=== PATIENT | male | born 2000 | race Caucasian/White ===

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

== ENCOUNTER 2022-09-23 10:15 | Emergency (ER) | payer OTHER, SELFPAY ==
[2022-09-23 10:15] VITALS: BP 131/76; PULSE 96; RESP 16; TEMP 36.8; O2SAT 96; BMI 25.2
--- NOTE | 2022-09-23 11:50 | ED.VIS.BACK ---
HPI History of Present Illness Chief Complaint: Back Informant: patient and parent Narrative Narrative: Patient complains of pain in the right lower back. He really points to the SI joint as his area. Is worse if he moves or twists. At first he states he just started somewhere around Sunday. He saw his physician on what sounds like Sunday or and was given a steroid shot. He states this made it worse. He does not have any numbness tingling weakness bowel or bladder dysfunction. No tearing or ripping. I then find out the more I talk to them that he has back pain going back many years. His mom states that he has had back pain since he was 9 years old. He has seen many specialist. He has had x-rays. He has had medicines nothing really gets it better. He works as an [employer] so he does a lot of lifting but denies any specific injury. He has not had any recent infections or fevers. This pain is typical of his pain but he states he can hurt anywhere up and down the back. It is different all the time. He has had pain in this lower area quite frequently though. He then states over the last few months he has been having more episodes of pain. He does not take any routine medications for this. He was given what sounds like a Kenalog shot but no prescriptions to go. He has never had surgery. He does report that he had a fracture of his spine. When I ask about this he states he had x-rays for a broken rib and it showed what was suspicious for a prior fracture of I believe his thoracic spine. He denies any specific injury recently. Motion and bending make it worse and rest makes it better. [facility] Medical History Back pain Viral URI Home Medications cyclobenzaprine 10 mg tablet 10 mg PO BID PRN muscle spasm #10 tabs 09/23/22 [Rx Last Taken Unknown] naproxen 500 mg tablet 500 mg PO BID #20 tabs 09/23/22 [Rx Last Taken Unknown] Allergy/AdvReac Type Severity Reaction Status Date / Time No Known Allergies Allergy Verified 09/23/22 10:19 Family History Grandmother COPD (chronic obstructive pulmonary disease) CHF (congestive heart failure) Hypertension Grandfather CHF (congestive heart failure) Kidney disease Diabetes Hypertension Pacemaker Sleep apnea Surgical History History of tonsillectomy and adenoidectomy Social History Smoking Status: Never smoker alcohol intake: never ROS ROS ED Constitutional Constitutional ED: Denies chills or fever(s) Eyes Eyes: Denies change in vision ENT ENT ED: Denies rhinorrhea or sore throat Cardiovascular Cardiovascular: Denies chest pain, palpitations or racing heartbeat Respiratory/Chest Respiratory/Chest: Denies dyspnea Gastrointestinal Gastrointestinal: Denies abdominal pain, nausea or vomiting Genitourinary Genitourinary ED: Denies dysuria, hematuria or urinary frequency Musculoskeletal Musculoskeletal: Reports back pain Integumentary Denies rash Neurologic Neurologic: Denies paresthesias or weakness Endocrine Endocrinology: Denies polydipsia or polyuria Hematologic/Lymphatic Hematologic/Lymphatic: Denies easy bleeding or easy bruising Allergic/Immunologic Allergic/Immunologic ED: Denies urticaria EXAM Physical Exam Const Vital Signs: 09/23/22 10:15 Temperature 98.2 F Temperature Source Temporal Pulse Rate 96 Respiratory Rate 16 Blood Pressure 131/76 H Blood Pressure Mean 94 Pulse Ox 96 Oxygen Delivery Method Room Air Positive well nourished HEENT Reports moist mucous membranes HEENT Narrative: Do not see a notably abnormal palate. Eyes PERRL and EOMs intact bilaterally Neck supple Resp normal respiratory effort and clear to auscultation bilaterally Effort and Inspection: Negative for pain with movement Cardio regular rate and regular rhythm GI normal to inspection, nondistended, normoactive bowel sounds and soft to palpation Palpation: Negative for tender Back/Spine normal to inspection Back/Spine Narrative: No rash or lesions or bruising. He has tenderness down very low in the right paraspinal area in the right SI joint. No real buttock or sciatic notch tenderness though. Extremity normal to inspection Extremity Narrative: No swelling tenderness distended veins or abnormal pulses. Neuro Neuro Narrative: Patient is alert and appropriate. He has 2+ bilateral patellar reflexes. He has 1+ bilateral Achilles reflex. He has normal strength. He can stand on heels toes and walk. He is a little stiff getting out of bed but he can walk normally. Sensorium / Orientation: alert Psych mental status grossly normal Skin no rashes or lesions noted MDM MDM MDM Narrative Medical decision making narrative: X-rays show what appear to be some chronic spondylolysis and spondylolisthesis. Patient has no neurologic symptoms. Plan will be nonsteroidals and muscle relaxants and ice. I stated that the steroids he was given still may provide some benefit. They may consider physical therapy as an outpatient. He will follow-up with his primary physician. If he develops numbness tingling weakness increasing pain fevers chills or other concerns he should return. Radiography Diagnostic Testing: Clinical Impression(s) from Imaging Studies Lumbar Spine X-Ray 09/23/22 11:54 IMPRESSION: Bilateral spondylolysis at L5 with grade 1 anterolisthesis of L5 over S1. Electronically Signed: Hal Barbour MD at 12:22 EST , Lumbar spine x-ray shows some spondylolysis and an anterior spondylolisthesis. When I look at prior films, i do see this from images from 04/22/2020. Discharge Plan Triage Chief Complaint: Back ED Provider: Joe Quiroga Dx/Rx/DC Orders Clinical Impression: Back pain Instructions: ED Back Pain (Acute or Chronic) Prescriptions: New cyclobenzaprine 10 mg tablet 10 mg PO BID PRN (Reason: muscle spasm) Qty: 10 0RF naproxen 500 mg tablet 500 mg PO BID Qty: 20 0RF Primary Care Provider: Benny Flynn Referrals: Benny Flynn MD [Primary Care Provider] - Disposition Disposition: Home, Self Care
--- NOTE | 2022-09-23 11:54 | RAD_ITS ---
INDICATION: Back pain EXAMINATION/TECHNIQUE: X-RAY - XR Spine Lumbar 2 or 3 Views COMPARISON: None. FINDINGS: VERTEBRAE: Preserved vertebral body height. No fracture. Bilateral spondylolysis at L5. Grade 1 anterolisthesis of L5 over S1. Preservation of the normal lumbar lordosis. No significant facet arthropathy. Minimal levoscoliosis. DISCS: Disc spaces are maintained. INCLUDED ABDOMEN: Included bowel gas pattern is non-obstructive. RAD/Lumbar Spine 2 or 3 Views IMPRESSION: Bilateral spondylolysis at L5 with grade 1 anterolisthesis of L5 over S1. Electronically Signed: Hal Barbour MD at 12:22 EST ,
[2022-09-23 13:22] VITALS: BP 108/79; PULSE 64; RESP 15; O2SAT 99
== END 2022-09-23 13:22 | disposition home or self-care (01) ==
PROVIDERS: Emergency Provider Emergency Medicine; PCP Family Medicine; Visit Provider Emergency Medicine
DX: M54.50 Low back pain, unspecified (principal)
CPT/HCPCS: 72100; 99282

== ENCOUNTER 2023-07-18 06:48 | Emergency (ER) | payer OTHER, SELFPAY ==
[2023-07-18 06:49] VITALS: PULSE 82; RESP 18; TEMP 36.4; O2SAT 99; BMI 28.8
[2023-07-18 06:51] VITALS: BP 144/87
--- NOTE | 2023-07-18 07:37 | ED.VIS.BACK ---
HPI History of Present Illness Chief Complaint: Back Narrative Narrative: Male with history of back pain presenting for lower back pain. Patient states he was walking his feet yesterday and bent over and felt a pop. He states his back has been hurting overnight. He has not tried any Tylenol or ibuprofen because he states it does not help him. He laid with a pillow under his back which usually works for him. He has tried ice but no heat. Denies loss of bladder or bowel control. Denies saddle anesthesia. Denies direct trauma. [facility] Medical History Back pain Viral URI Home Medications NK 12/08/22 [History Last Taken Unknown] lidocaine 5 % topical patch (Lidoderm) 1 patch topical DAILY #15 ea 07/18/23 [Rx Last Taken Unknown] naproxen 500 mg tablet (Naprosyn) 500 mg PO BID PRN pain #20 tabs 07/18/23 [Rx Last Taken Unknown] tizanidine 4 mg capsule (Zanaflex) 4 mg PO Q8H PRN muscle spasticity #20 caps 07/18/23 [Rx Last Taken Unknown] Allergy/AdvReac Type Severity Reaction Status Date / Time No Known Allergies Allergy Verified 07/18/23 06:52 Family History Grandmother COPD (chronic obstructive pulmonary disease) CHF (congestive heart failure) Hypertension Grandfather CHF (congestive heart failure) Kidney disease Diabetes Hypertension Pacemaker Sleep apnea Surgical History History of tonsillectomy and adenoidectomy Social History Smoking Status: Never smoker alcohol intake: never ROS ROS ED Constitutional Constitutional ED: Denies chills, fever(s) or sweats Eyes Eyes: Denies blurry vision or change in vision ENT ENT ED: Denies ear pain or sore throat Cardiovascular Cardiovascular: Denies chest pain, palpitations or racing heartbeat Respiratory/Chest Respiratory/Chest: Denies cough, dyspnea or sputum Gastrointestinal Gastrointestinal: Denies abdominal pain, constipation, diarrhea, nausea or vomiting Genitourinary Genitourinary ED: Denies dysuria, hematuria or urinary frequency Musculoskeletal Musculoskeletal: Reports back pain; Denies arthralgias, myalgias or neck pain Integumentary Denies abscess, Abrasions or rash Neurologic Neurologic: Denies headache(s), paresthesias or weakness Psychiatric Psychiatric: Denies anxiety, depression, suicidal ideation or suicidal thoughts Endocrine Endocrinology: Denies polydipsia or polyuria EXAM Physical Exam Const Vital Signs: 07/18/23 06:49 07/18/23 06:51 Temperature 97.5 F L Temperature Source Temporal Pulse Rate 82 Respiratory Rate 18 Blood Pressure 144/87 H Blood Pressure Mean 106 Pulse Ox 99 Oxygen Delivery Method Room Air Positive well nourished General Appearance ED: NAD HEENT Reports moist mucous membranes Eyes PERRL and EOMs intact bilaterally Resp normal respiratory effort Cardio regular rate and regular rhythm Back/Spine Back/Spine Narrative: Right lumbar paraspinal muscular tenderness adjacent to L4-L5. No midline spinal deformity, step-off, tenderness. Extremity normal to inspection Neuro oriented x3 Sensorium / Orientation: alert Motor Exam: strength 5/5 throughout Psych mental status grossly normal Skin no rashes or lesions noted MDM MDM MDM Narrative Medical decision making narrative: Lumbar strain. Patient has not tried any anti-inflammatories or Tylenol. He is given Naprosyn and Norflex here. He did not want any IM shots. I do not believe he needs any imaging. I discussed at length with him care for lower back pain. He is given a prescription for muscle relaxers and Naprosyn. It was recommended that he follow-up with his PCP to ensure resolution. Return precautions discussed. Impression: 1. Lumbar strain Discharge Plan Triage Chief Complaint: Back ED Provider: Breezy Michelle Dx/Rx/DC Orders Instructions: ED Back Sprain/Strain Prescriptions: New naproxen [Naprosyn] 500 mg tablet 500 mg PO BID PRN (Reason: pain) Qty: 20 0RF tizanidine [Zanaflex] 4 mg capsule 4 mg PO Q8H PRN (Reason: muscle spasticity) Qty: 20 0RF lidocaine [Lidoderm] 5 % adhesive patch,medicated 1 patch topical DAILY Qty: 15 0RF Rx Instructions: leave on most painful area for up to 12 hrs No Action NK Primary Care Provider: Benny Flynn Referrals: Benny Flynn MD [Primary Care Provider] - Disposition Disposition: Home, Self Care
[2023-07-18] MEDS: Naproxen 500 MG Tablet PO (07:44)
[2023-07-18] MEDS: Orphenadrine 100 MG Tablet PO (07:44)
== END 2023-07-18 08:11 | disposition home or self-care (01) ==
LOC: ED 07:40
PROVIDERS: Emergency Provider Student in an Organized Health Care Education/Training Program; PCP Family Medicine; Visit Provider Student in an Organized Health Care Education/Training Program
DX: S39.012A Strain of muscle, fascia and tendon of lower back, initial encounter (principal); X58.XXXA Exposure to other specified factors, initial encounter
CPT/HCPCS: 99283

== ENCOUNTER → 2024-02-07 | Outpatient (CLI) | payer OTHER, SELFPAY ==
--- NOTE | 2024-02-07 17:30 | RAD_ITS ---
STUDY: X-RAY - LUMBAR SPINE REASON FOR EXAM: Male, 23 years old. BACKACHE TECHNIQUE: 5 view(s) of the lumbar spine were obtained. COMPARISON: 09/23/2022 FINDINGS: Normal lumbar lordosis. There is no substantial scoliosis. Bilateral pars defects the L5 vertebra consistent with L5 spondylolysis. 5 mm of anterolisthesis of L5 on S1 consistent with grade 1 spondylolisthesis. Normal vertebral bodies and endplates. Normal disc space heights. Multilevel facet hypertrophy in the lower lumbar spine. The soft tissue structures are unremarkable. RAD/L/S Spine Min 4 Views IMPRESSION: 1. L5 spondylolysis with grade 1 spondylolisthesis of L5 on S1. 2. Degenerative disc disease lower lumbar spine. MRI may be useful. Electronically Signed: Man Nino MD at 21:53 EDT ,
== END | disposition home or self-care (01) ==
PROVIDERS: PCP Family Medicine; Referring Provider Family Medicine; Visit Provider Family Medicine
DX: M54.9 Dorsalgia, unspecified (principal)
CPT/HCPCS: 72110

== ENCOUNTER → 2024-02-08 | Outpatient (CLI) | payer OTHER, SELFPAY ==
--- NOTE | 2024-02-08 15:10 | RAD_ITS ---
EXAM: XR LUMBOSACRAL SPINE FLEXION/EXTENSION ONLY, 2 OR 3 VIEWS CLINICAL INDICATION: back pain -- FLEXION AND EXTENSION TECHNIQUE: Lateral flexion/extension views of the lumbar spine and sacrum. COMPARISON: No relevant prior studies available. FINDINGS: VERTEBRAE: Bilateral L5 spondylolysis noted with grade 2 spondylolisthesis. The anterior listhesis measures 13 mm on flexion and 9 mm on extension indicating an element of laxity at the L5-S1 level. Normal vertebral body height. SPACES: No acute findings. Disc spaces are maintained. RAD/L/S Spine Bending Flex/Ext IMPRESSION: Grade 2 listhesis of L5-S1 associated with spondylolysis. Laxity changes with flexion and extension. Electronically Signed: Ryan Clemons MD at 16:07 EDT ,
== END | disposition home or self-care (01) ==
PROVIDERS: PCP Family Medicine; Referring Provider Family Medicine; Visit Provider Family Medicine
DX: M43.10 Spondylolisthesis, site unspecified (principal)
CPT/HCPCS: 72120

== ENCOUNTER 2024-03-05 18:30 | Emergency (ER) | payer OTHER, SELFPAY ==
[2024-03-05 18:31] VITALS: BP 162/125; PULSE 99; RESP 18; TEMP 36.1; O2SAT 97
[2024-03-05 18:40] VITALS: BMI 28.5
--- NOTE | 2024-03-05 19:25 | EX.ED.DYSGE1 ---
HPI History of Present Illness Chief Complaint: Wound Informant: patient Onset/Context/Timing Onset: - (2+ years) Context: Gradual Onset Timing: Continuous Current Severity: Mild Maximum Severity: Mild Narrative Narrative: 23-year-old male no seen past medical history. Today was in [place] [facility] in the physical evaluation. He asked about the soft tissue density on his chest. They told him it could possibly be lymphoma and he came in the emergency department have it evaluated. He denies any recent illness. He has had about 20 pound weight loss in the last 2 months but he said he has been watching what he is eating and trying to lose some weight. He denies any lymphadenopathy. Or other symptoms. Prior similar symptoms: Yes Recent Illness/Hospitalization: No PFSH PFSH Medical History Viral URI Back pain Home Medications ?Medication ?Instructions ?Recorded ?Last Taken ?Type cephalexin 500 mg capsule 500 mg PO Q8H 7 days #21 caps 03/05/24 Unknown Rx Allergy/AdvReac Type Severity Reaction Status Date / Time No Known Allergies Allergy Verified 03/05/24 18:33 Family History Grandmother COPD (chronic obstructive pulmonary disease) CHF (congestive heart failure) Hypertension Grandfather CHF (congestive heart failure) Kidney disease Diabetes Hypertension Pacemaker Sleep apnea Surgical History History of tonsillectomy and adenoidectomy Social History household members: other details: Girlfriend Smoking Status: Current some day smoker tobacco type: e-cigarettes alcohol intake: never substance use type: marijuana ROS ROS ED ROS Narrative Denies recent illness. Review of Systems ROS Unobtainable: Denies due to encephalopathy Constitutional Constitutional ED: Denies chills Eyes Eyes: Denies blurry vision ENT ENT ED: Denies ear pain Cardiovascular Cardiovascular: Denies chest pain Respiratory/Chest Respiratory/Chest: Denies cough Gastrointestinal Gastrointestinal: Denies abdominal pain Genitourinary Genitourinary ED: Denies dysuria Musculoskeletal Musculoskeletal: Denies arthralgias Integumentary Denies abscess, Abrasions or rash Neurologic Neurologic: Denies headache(s) Psychiatric Psychiatric: Denies anxiety or depression Endocrine Endocrinology: Denies cold intolerance Hematologic/Lymphatic Hematologic/Lymphatic: Reports none Allergic/Immunologic Allergic/Immunologic ED: Denies mouth swelling, tongue swelling or urticaria EXAM Physical Exam Narrative Exam Narrative: 5-year-old male vital signs stable afebrile. Initial blood pressure is elevated 160/125 to be rechecked. H EENT exam unremarkable. Neck nontender no lymphadenopathy. Lungs clear to auscultation bilateral. Heart regular rhythm no murmur. Abdomen soft nontender. Over sternum there is a soft tissue density below the skin. This could be soft tissue infection. More than likely is a lipoma. It is only minimally tender. There is no fluctuance. There is a small pimple on his chest wall. There is nothing to drain. He has no axillary, cervical or inguinal lymphadenopathy. Back nontender. Lungs clear to auscultation bilaterally. Heart regular rhythm. No murmur. Moving all 4 extremities. Nontender no edema. Const Vital Signs: 03/05/24 18:31 Temperature 97 F L Temperature Source Temporal Pulse Rate 99 Respiratory Rate 18 Blood Pressure 162/125 H Blood Pressure Mean 137 Pulse Ox 97 Oxygen Delivery Method Room Air Positive well nourished and well developed; Negative for obese, cachectic, contractures or unkempt General Appearance ED: well developed and NAD; Negative for unkempt, cachectic, contractures, cyanotic, diaphoretic or pallor Nutritional Appearance: Negative for cachectic or obese HEENT Reports moist mucous membranes; Denies dry mucous membranes Negative for trauma or tenderness Mouth ED: No dry mucous membranes Mouth: No dry mucous membranes Eyes PERRL and EOMs intact bilaterally General Eye ED: Negative for pale conjunctiva Neck no lymphadenopathy, supple and no JVD General: Negative for tenderness Lymph Lymphatic: Negative for other Chest Wall inspection of chest normal; Negative for palpation of chest normal Chest Narrative: Small subcu density midsternal region. Most likely a lipoma. No fluctuance. Small pimple lateral to it. Resp normal respiratory effort and clear to auscultation bilaterally Effort and Inspection: Negative for retractions Auscultation: Negative for rales, rhonchi, wheezes or diminished lung sounds Cardio regular rate, regular rhythm, S1 normal heart sound, S2 normal heart sound and no murmurs Palpation: Negative for palpable S3 or palpable S4 Rate: Negative for bradycardia or tachycardic Rhythm: Negative for abnormal rhythm GI normal to inspection, nondistended, normoactive bowel sounds, non-tender, non-distended and no masses Inspection: Negative for abdominal distention Auscultation: normoactive bowel sounds Palpation: soft; Negative for tender or guarding Back/Spine no CVA tenderness Extremity normal to inspection General Extremety ED: Negative for edema, tenderness or other findings General Extremity: Negative for edema or other findings Neuro oriented x3 and CN's II-XII intact bilaterally Sensorium / Orientation: alert; Negative for orientation impaired, lethargic or stuporous Motor Exam: strength 5/5 throughout Psych mental status grossly normal Appearance: Negative for unkempt Attitude: No agitated Mood & Affect: Negative for depressed, anxious or tearful Skin no rashes or lesions noted, no wounds and skin turgor normal General Skin Exam: elasticity normal; Negative for jaundice or pallor Lesions: No lesion noted Rashes: No rashes noted Trauma: Negative for abrasion Wounds: Negative for wounds noted MDM MDM MDM Narrative Medical decision making narrative: 23-year-old male subcu soft tissue density along the sternum of his chest. Approximately 1 inch in length. Abscess. There is no cellulitis. More likely a lipoma. We placed on Keflex in case it is a soft tissue infection because there is a small pimple in the area. There is nothing to drain at this time there is no fluctuance. Follow-up with his doctor if not improving in a week to have further evaluation and possibly even a biopsy if needed. Discharge Plan Triage Chief Complaint: Wound ED Provider: Gabriel Owen Dx/Rx/DC Orders Clinical Impression: Lipoma Instructions: ED Lipoma Prescriptions: New cephalexin 500 mg capsule 500 mg PO Q8H 7 Days Qty: 21 0RF Primary Care Provider: Crow Flynn Referrals: Crow Flynn MD [Primary Care Provider] - 1 Week if not improving Activity Restrictions/Additional Instructions: Most likely a soft tissue benign tumor called a lipoma. Extremely unlikely that this would be lymphoma. It could be a soft tissue infection without small pimple beside it. Will put her on antibiotic Keflex 3 times a day for a week. If this does not get better follow-up with Dr. Song Garcia he can have you see a relay telegrapher in case he would need a biopsy. Print Language: Croatian Disposition Disposition: Home, Self Care
== END 2024-03-05 19:37 | disposition home or self-care (01) ==
PROVIDERS: Emergency Provider Emergency Medicine; PCP Family Medicine; Visit Provider Emergency Medicine
DX: D17.1 Benign lipomatous neoplasm of skin and subcutaneous tissue of trunk (principal); R23.8 Other skin changes; F17.290 Nicotine dependence, other tobacco product, uncomplicated
CPT/HCPCS: 99282

== ENCOUNTER → 2024-03-07 | Outpatient (CLI) | payer OTHER, SELFPAY ==
--- NOTE | 2024-03-07 14:06 | MRI_ITS ---
STUDY: MRI LUMBAR SPINE WITHOUT CONTRAST REASON FOR EXAM: Male, 23 years old. pain low back pain, sharp at times, throbbing, multiple therapy x4yrs TECHNIQUE: Standardized fat and water weighted pulse sequences were obtained in the sagittal and axial planes. COMPARISON: X-ray the lumbar spine dated February 08, 2024 FINDINGS: Normal lumbar lordosis. There is no substantial scoliosis. Normal conus medullaris that terminates at the T12 level. No marrow edema or fracture or compression deformity is present. Bilateral chronic L5 pars interarticularis defects are present. T12-L1: Normal endplates. Normal disc height, hydration and morphology. Normal bilateral facet joints. Normal central canal and bilateral lateral recesses. Normal bilateral intervertebral neural foramina. L1-2: Normal endplates. Normal disc height, hydration and morphology. Normal bilateral facet joints. Normal central canal and bilateral lateral recesses. Normal bilateral intervertebral neural foramina. L2-3: Normal endplates. Normal disc height, hydration and morphology. Normal bilateral facet joints. Normal central canal and bilateral lateral recesses. Normal bilateral intervertebral neural foramina. L3-4: Normal endplates. Normal disc height, hydration and morphology. Normal bilateral facet joints. Normal central canal and bilateral lateral recesses. Normal bilateral intervertebral neural foramina. L4-5: Normal endplates. Mild posterior disc space narrowing with slight annular bulging. Normal bilateral facet joints. Normal central canal and bilateral lateral recesses. Normal bilateral intervertebral neural foramina. 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 Normal left neural foramen. Severe right foraminal stenosis with nerve root compression. Mild disc desiccation and mild disc space narrowing. Uncovering of the posterior aspect of the disc. Mild to moderate facet joint hypertrophy. Normal central canal and bilateral lateral recesses. Normal visualized sacral ala. Normal visualized paraspinous soft tissue structures. MRI/Spine Lumbar (Routine) IMPRESSION: 1. 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 Severe right foraminal stenosis with nerve root compression Electronically Signed: Srinivasan Chung MD at 16:00 EDT Reading Location ID and State: [address] [place] [address] , Service support ,
== END | disposition home or self-care (01) ==
LOC: MRI 14:00
PROVIDERS: PCP Family Medicine; Referring Provider Orthopaedic Surgery Orthopaedic Surgery of the Spine; Visit Provider Orthopaedic Surgery Orthopaedic Surgery of the Spine
DX: M43.16 Spondylolisthesis, lumbar region (principal)
CPT/HCPCS: 72148

== ENCOUNTER 2024-09-23 15:56 | Emergency (ER) | payer OTHER, SELFPAY ==
[2024-09-23 15:58] VITALS: BP 149/94; PULSE 92; RESP 18; TEMP 36.3; O2SAT 100; BMI 26.2
--- NOTE | 2024-09-23 16:13 | EDS_ITS ---
HPI History of Present Illness Chief Complaint: Hypertension Detail of Chief Complaint: Hypertension and nosebleeds Informant: patient Narrative Narrative: Patient presents to the emergency department with concern for nosebleeds that started about a week ago. Patient states that he has had daily nosebleeds from the left side of his nose. About 5 days ago he started getting sick with some sinus congestion and headache and mild cough. He does not take any decongestions. 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 Today he had a nosebleed that lasted about a half an hour and had some he checked his blood pressure and it was 158 over 90s. Patient states that in the past the spot checked his blood pressure and typically runs in the 140 systolic. Today when he had his nosebleed and his blood pressure was checked he felt lightheaded and dizzy. He was worried about significant blood loss. PFSH PFS Medical History Viral URI Back pain Allergy/AdvReac Type Severity Reaction Status Date / Time No Known Allergies Allergy Verified 09/23/24 15:58 Family History Grandmother COPD (chronic obstructive pulmonary disease) CHF (congestive heart failure) Hypertension Grandfather CHF (congestive heart failure) Kidney disease Diabetes Hypertension Pacemaker Sleep apnea Surgical History History of tonsillectomy and adenoidectomy Social History household members: other details: Girlfriend Smoking Status: Current some day smoker tobacco type: e-cigarettes alcohol intake: never substance use type: marijuana ROS ROS ED Review of Systems ROS Unobtainable: other Constitutional Constitutional ED: Reports lethargy; Denies chills, fever(s), sweats or weight loss Eyes Eyes: Denies blurry vision, change in vision or diplopia ENT ENT ED: Reports other Details: Nosebleeds ; Denies rhinorrhea or sore throat Cardiovascular Cardiovascular: Denies chest pain, orthopnea or racing heartbeat Respiratory/Chest Respiratory/Chest: Denies cough, dyspnea, dyspnea on exertion, orthopnea or sputum Gastrointestinal Gastrointestinal: Denies abdominal pain, diarrhea, nausea or vomiting Genitourinary Genitourinary ED: Denies dysuria, hematuria or urinary frequency Musculoskeletal Musculoskeletal: Denies arthralgias, back pain, myalgias or neck pain Integumentary Denies abscess, Abrasions or rash Neurologic Neurologic: Denies headache(s) or weakness Psychiatric Psychiatric: Denies anxiety, depression or suicidal thoughts Endocrine Endocrinology: Denies polydipsia, polyphagia or polyuria Hematologic/Lymphatic Hematologic/Lymphatic: Denies easy bleeding, easy bruising or lymphadenopathy Allergic/Immunologic Allergic/Immunologic ED: Denies mouth swelling, tongue swelling or urticaria EXAM Physical Exam Const Vital Signs: 09/23/24 15:58 09/23/24 16:25 09/23/24 16:25 Temperature 97.3 F L Temperature Source Temporal Pulse Rate 92 74 Respiratory Rate 18 18 Respiratory Effort Normal Respiratory Pattern Normal Blood Pressure 149/94 H 153/78 H Blood Pressure Mean 112 103 Pulse Ox 100 99 Oxygen Delivery Method Room Air Room Air Positive well nourished and well developed General Appearance ED: well developed and NAD HEENT Reports TM's clear and moist mucous membranes HEENT Narrative: Left nasal vault-patient does have some excoriated vessels on the anterior septum that I suspect likely the source of the bleeding. No active bleeding currently. Patient also with some superficial vessels noted on the right anterior septum without evidence of hemorrhage. normocephalic and atraumatic; Negative for trauma or tenderness Tympanic Membrane ED: Yes TM's clear Eyes PERRL and EOMs intact bilaterally General Eye ED: Negative for pale conjunctiva or scleral icterus Neck no lymphadenopathy, supple and no JVD General: Negative for tenderness Chest Wall inspection of chest normal and palpation of chest normal Chest: Negative for tenderness Resp normal respiratory effort and clear to auscultation bilaterally Effort and Inspection: Negative for respiratory distress or pain with movement Auscultation: Negative for rhonchi, wheezes or diminished lung sounds Cardio regular rate, regular rhythm, S1 normal heart sound, S2 normal heart sound and no murmurs Peripheral Pulses: pulses 2+ throughout GI normal to inspection, nondistended, normoactive bowel sounds, soft to palpation, non-tender, non-distended and no masses Back/Spine no CVA tenderness and no thoracic nor lumbar tenderness Extremity normal to inspection General Extremety ED: Negative for edema General Extremity: Negative for edema Neuro oriented x3, CN's II-XII intact bilaterally, no sensory deficits noted and gait normal Sensorium / Orientation: awake, alert, oriented to person, oriented to place and oriented to time Motor Exam: strength 5/5 throughout and strength abnormal Psych mental status grossly normal Skin no rashes or lesions noted and no wounds MDM MDM MDM Narrative Medical decision making narrative: Patient with nosebleeds and concern for hypertension. Clinically looks well. He has some excoriated vessels on the anterior septum on the left without active bleeding currently. I suspect this is the source of bleeding. Patient had an EKG obtained on arrival that showed a sinus rhythm with ventricular rate of 69 bpm with nonspecific intraventricular conduction delay. CBC with digital count of 10.2 with hemoglobin 13.9 and platelet count of 185. Chemistries unremarkable. BUN was 9 and creatinine 0.82. Without any treatment for most current blood pressure 130s over 90s. At this point I do not feel he needs blood pressure medication started. I advised him on watching his diet decreasing his sodium intake. Advised him to check his blood pressure daily in the morning and follow-up with primary care physician within the next week. As far as the nosebleeds advised not to blow his nose or pick his nose. Advised to that after a few days of no bleeding to use some Vaseline on the end of the finger to apply to the anterior septum bilaterally to keep the area moist. Advised all constant pressure for 20 minutes without letting go if the bleeding returns and if the bleeding does not stop to return to the emergency department. Lab Data Attestation: I reviewed the patient's lab results. Labs: Laboratory Results - last 24 hr 09/23/24 16:32 WBC 10.2 RBC 4.63 Hgb 13.9 Hct 39.2 L MCV 84.7 MCH 30.0 MCHC 35.5 RDW Std Deviation 37.2 RDW Coeff of Kj 12.3 Plt Count 185 MPV 10.4 Immature Gran % (Auto) 0.400 Neut % (Auto) 68.0 Lymph % (Auto) 22.3 Lea % (Auto) 7.9 Eos % (Auto) 1.1 Baso % (Auto) 0.3 Absolute Neuts (auto) 6.9 Absolute Lymphs (auto) 2.27 Nucleated RBC % 0 Sodium 140 Potassium 3.5 Chloride 108 H Carbon Dioxide 26.0 Anion Gap 6 BUN 9 Creatinine 0.82 Estim Creat Clear Calc 182.68 Est GFR (MDRD) Af Amer 150 Est GFR (MDRD) Non-Af 124 BUN/Creatinine Ratio 10.9 Glucose 91 Calcium 9.5 EKG Initial EKG: Attestation: I personally reviewed and interpreted this EKG as follows: Comments: Sinus rhythm with rate of 69 bpm with nonspecific intraventricular conduction delay Discharge Plan Triage Chief Complaint: Hypertension ED Provider: Saundra Gill Dx/Rx/DC Orders Clinical Impression: Acute anterior epistaxis, Hypertension Instructions: ED Epistaxis (Adult), ED Hypertension, To Be Confirmed Primary Care Provider: Crow Flynn Referrals: Crow Flynn MD [Primary Care Provider] - 5-7 Days Print Language: [place] Disposition Disposition: Home, Self Care
--- NOTE | 2024-09-23 16:13 | EKG12_ITS ---
Test Reason : WEAKNSS Blood Pressure : */* mmHG Vent. Rate : 69 BPM Atrial Rate : 69 BPM P-R Int : 194 ms QRS Dur : 130 ms QT Int : 386 ms P-R-T Axes : 53 63 43 degrees QTcB Int : 413 ms Normal sinus rhythm Non-specific intra-ventricular conduction block Abnormal ECG Confirmed by VIBHA NAZARIO, CHARLENE ([id number]), film and video editor GAYE BORREGO ([id number]) on 09/24/2024 12:37:51 PM Referred By: Confirmed By: CHARLENE DUNNE MD
[2024-09-23 16:25] VITALS: BP 153/78; PULSE 74; RESP 18; O2SAT 99
[2024-09-23 16:42] LABS: Absolute Lymphocyte Count 2.27 X10^3/uL (0.83-4.51); Absolute Neutrophil Count 6.9 X10^3/uL (2.0-7.7); Basophil# 0.03 X10^3/uL; Basophil% 0.3 % (0-1); Eosinophil# 0.11 X10^3/uL; Eosinophils% 1.1 % (0-5); Hematocrit 39.2 % (40-54); Hemoglobin 13.9 g/dL (13.0-16.5); Lymphocyte # 2.27 X10^3/ul (0.83-4.51); Lymphocyte % 22.3 % (19-41); Mean Corp Hgb Conc 35.5 g/dL (32-36); Mean Corpuscular Volume 84.7 fL (80-94); Mean Platelet Vol. 10.4 fl (6.2-12.0); Monocyte% 7.9 % (0-10); NRBC Flagged by Analyzer 0 % (0-5); Neutrophil # 6.94 X10^3/uL (2.7-7.7); Platelet Count 185 K/mm3 (150-450); RBC Distribution Width CV 12.3 % (11.6-14.6); RBC Distribution Width SD 37.2 fl (35.1-43.9); Red Blood Count 4.63 M/mm3 (4.6-6.2); White Blood Count 10.2 K/mm3 (4.4-11.0)
[2024-09-23 16:56] LABS: Anion Gap 6 (5-15); BUN 9 mg/dL (7-18); BUN/Creat Ratio 10.9 RATIO (10-20); Calcium,Total 9.5 mg/dL (8.5-10.1); Chloride 108 mmol/L (98-107); Creatinine, Serum 0.82 mg/dL (0.70-1.30); EST Glomerular Filtration Rate 124 mL/min (>60); Est Glom Filt Rate - Afr Amer 150 mL/min (>60); Estimated Creatinine Clearance 182.68 ml/min; Glucose 91 mg/dL (74-106); Potassium 3.5 mmol/L (3.5-5.1); Sodium Level 140 mmol/L (136-145)
[2024-09-23 17:15] VITALS: BP 137/94; PULSE 66; RESP 16; TEMP 36.4; O2SAT 99
== END 2024-09-23 17:15 | disposition home or self-care (01) ==
PROVIDERS: Emergency Provider Emergency Medicine; PCP Family Medicine; Visit Provider Emergency Medicine
DX: R04.0 Epistaxis (principal); I10 Essential (primary) hypertension; F17.290 Nicotine dependence, other tobacco product, uncomplicated
CPT/HCPCS: 80048; 85025; 93005; 99284; A4216